=== PATIENT | male | born 1990 | race Caucasian/White ===

== ENCOUNTER 2023-09-30 15:26 | Emergency (ER) | payer SELFPAY ==
[2023-09-30] MEDS ORDERED: Ondansetron PF 4 MG/2 ML Vial ONE (17:01)
== END 2023-09-30 18:01 | disposition home or self-care (01) ==
LOC: ERS 15:26
DX: K52.9 Noninfective gastroenteritis and colitis, unspecified (principal); E86.0 Dehydration
CPT/HCPCS: 96361; 96374; J2405